=== PATIENT | female | born 1990 | race Caucasian/White ===

== ENCOUNTER 2020-01-19 18:31 | Emergency (ER) | payer OTHER ==
[~2020-01-19 18:31] MED LIST: Iopamidol-370 76% 500 ML 1 ML ONE
[2020-01-19] MEDS ORDERED: Fentanyl 100 MCG/2 ML VIAL ONE (18:44)
[2020-01-19 18:54] LABS: #Eosinphils 0.2 thou/uL (0.0-0.7); #Monocytes 0.5 thou/uL (0.11-0.59); #Neutrophils 5.4 thou/uL (1.40-6.50); %Basophils 0.6 % (0.0-1.0); %Eosinophils 2.8 % (0.0-10.0); %Lymphocytes 24.1 % (21.0-51.0); %Monocytes 6.1 % (0.0-10.0); %Neutrophils 66.5 % (42.0-75.0); Hemoglobin 15.1 g/dL (12.0-16.0); Mean Corpuscular Hemoglobin 34.3 pg (27.0-31.0); Mean Corpuscular Volume 97.9 fL (78.0-98.0); Mean Platelet Volume 10.2 fL (7.4-10.4); Platelet Count 168 thou/uL (130-400); RBC Distribution Width 11.6 % (11.5-14.5); Red Blood Cell (RBC) Count 4.39 mill/uL (4.20-5.40); White Blood Cell (WBC) Count 8.2 thou/uL (4.8-10.8)
[2020-01-19 19:03] LABS: BHCG - Serum Negative (NEGATIVE); Pregs Control Background? CLEAR/WHITE (CLR/WHITE); Pregs Control Bar Appear? YES (CONTROL BAR)
[2020-01-19 19:07] LABS: ALT (SGPT) 12 U/L (8-55); AST (SGOT) 17 U/L (5-34); Alkaline Phosphatase 64 U/L (40-110); Anion Gap 14 mmol/L (10-20); BUN (Urea Nitrogen) 10 mg/dL (7.0-18.7); Bilirubin, Total 0.8 mg/dL (0.2-1.2); Calc. Creatinine Clearance 0 mL/min (70-130); Calcium 8.7 mg/dL (7.8-10.44); Carbon Dioxide 18 mmol/L (22-29); Chloride 107 mmol/L (98-107); Estimated GFR-MDRD 67; Globulin 2.6 g/dL (2.4-3.5); Glucose 104 mg/dL (70-105); Lipase 12 U/L (8-78); Potassium 3.8 mmol/L (3.5-5.1); Protein, Total 6.6 g/dL (6.0-8.3); Sodium 135 mmol/L (136-145)
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
[2020-01-19] MEDS ORDERED: Lidocaine 1% w/Epinephrine 1:100K 20 ML VIAL ONE (20:24)
[2020-01-19] MEDS ORDERED: Ondansetron PF 4 MG/2 ML Vial ONE ×2 (20:27→21:41)
--- NOTE | 2020-01-19 21:08 | RAD ---
XR Wrist 3 Lt View STANDARD History: Pain Comparison: None. Findings: Subtle linear lucency along the medial margin of the hamate at the carpometacarpal joint. R emainder the wrist is intact. Impression: Subtle vertically oriented linear lucency of medial margin of the hamate at the carpometa carpal joint. Recommend correlation with focal tenderness in this area.
[2020-01-19] MEDS ORDERED: Morphine 4 MG/ML VIAL ONE (21:41)
[2020-01-19 22:02] LABS: Lactic Acid 1.8 mmol/L (0.5-2.2)
[2020-01-19] MEDS ORDERED: Bacitracin 1 PK ONE (22:29)
== END 2020-01-19 22:58 | disposition home or self-care (01) ==
LOC: ERS 18:31
DX: S09.90XA Unspecified injury of head, initial encounter (principal); S62.142A Displaced fracture of body of hamate [unciform] bone, left wrist, initial encounter for closed fracture; S81.012A Laceration without foreign body, left knee, initial encounter; S51.012A Laceration without foreign body of left elbow, initial encounter; V29.9XXA Motorcycle rider (driver) (passenger) injured in unspecified traffic accident, initial encounter
CPT/HCPCS: 12002; 36415; 70450; 71260; 72125; 72170; 74177; 80053; 83605; 83690; 84703; 85025; 86850; 86900; 86901; 90471; 93005; 96374; 96375; 96376; G0390; J2270; J2405; J3010; Q9967

== ENCOUNTER 2020-04-05 18:46 | Inpatient (IN) | payer OTHER ==
[~2020-04-05 18:46] MED LIST changes: +Calcium Chloride 1 GM/10 ML Abboject SYRINGE ONE; +PROPOFOL 200 MG/20 ML VIAL ONE; +Rocuronium Bromide 10 MG/ML (10ML VIAL) ONE
[2020-04-05] MEDS ORDERED: Fentanyl 100 MCG/2 ML VIAL ONE ×3 (18:50→21:41)
[2020-04-05] MEDS ORDERED: Boostrix 0.5 ML (Tdap) VIAL ONE (18:50)
[2020-04-05] MEDS ORDERED: Rocuronium Bromide 10 MG/ML (10ML VIAL) ONE (18:53)
[2020-04-05] MEDS ORDERED: Ketamine 50 MG/ML (10ML VIAL) ONE (18:53)
[2020-04-05 19:05] LABS: #Basophils 0.1 thou/uL (0.0-0.2); #Eosinphils 0.1 thou/uL (0.0-0.7); #Lymphocytes 2.9 thou/uL (1.20-3.40); #Monocytes 0.4 thou/uL (0.11-0.59); #Neutrophils 11.4 thou/uL (1.40-6.50); %Basophils 0.5 % (0.0-1.0); %Eosinophils 0.7 % (0.0-10.0); %Lymphocytes 19.3 % (21.0-51.0); %Monocytes 2.5 % (0.0-10.0); Hemoglobin 14.4 g/dL (12.0-16.0); Mean Corpuscular HGB CONC 33.3 g/dL (32.0-36.0); Mean Corpuscular Hemoglobin 32.5 pg (27.0-31.0); Mean Corpuscular Volume 97.5 fL (78.0-98.0); Mean Platelet Volume 8.9 fL (7.4-10.4); Platelet Count 207 thou/uL (130-400); RBC Distribution Width 11.5 % (11.5-14.5); Red Blood Cell (RBC) Count 4.42 mill/uL (4.20-5.40); White Blood Cell (WBC) Count 14.8 thou/uL (4.8-10.8)
[2020-04-05] MEDS ORDERED: Gentamicin 80 MG/2 ML VIAL ONE (19:09)
[2020-04-05 19:11] LABS: PTT 26.3 sec (22.9-36.1)
[2020-04-05 19:13] LABS: INR-International Normal Ratio 1.1; Prothrombin Time 14.8 sec (12.0-14.7)
[2020-04-05 19:16] LABS: BHCG - Serum Negative (NEGATIVE); Pregs Control Background? CLEAR/WHITE (CLR/WHITE); Pregs Control Bar Appear? YES (CONTROL BAR)
[2020-04-05] MEDS ORDERED: fentaNYL Citrate/PF 2,000 MCG in Sodium Chloride 0.9% 60 ML IV SCH (19:30)
[2020-04-05 19:32] LABS: ALT (SGPT) 472 U/L (8-55); AST (SGOT) 618 U/L (5-34); Albumin 4.1 g/dL (3.5-5.0); Alkaline Phosphatase 60 U/L (40-110); Anion Gap 17 mmol/L (10-20); BUN (Urea Nitrogen) 10 mg/dL (7.0-18.7); Bilirubin, Total 0.6 mg/dL (0.2-1.2); Calc. Creatinine Clearance 0 mL/min (70-130); Calcium 8.5 mg/dL (7.8-10.44); Carbon Dioxide 19 mmol/L (22-29); Chloride 108 mmol/L (98-107); Globulin 2.8 g/dL (2.4-3.5); Glucose 126 mg/dL (70-105); Potassium 3.9 mmol/L (3.5-5.1); Protein, Total 6.9 g/dL (6.0-8.3); Sodium 140 mmol/L (136-145)
[2020-04-05 20:00] LABS: Acetaminophen Less than 6.0 mcg/mL (10.0-30.0); Alcohol 59 mg/dL (Less than 10); Salicylate Less than 8.0 mg/dL (15.0-30.0)
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
[2020-04-05] MEDS ORDERED: Sodium Chloride 0.9% 50 ML ONE (20:10)
[2020-04-05] MEDS ORDERED: PHENYLEPHRINE-NS 100 MCG/ML 10 ML SYRINGE ONE (20:24)
[2020-04-05] MEDS ORDERED: Phenylephrine 10 MG/ML VIAL ONE (20:24)
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
[2020-04-05 20:30] LABS: Bilirubin Negative (Negative); Blood, Urine 3+ (Negative); Clarity Clear (Clear); Glucose, Urine (Dipstick) Normal (Negative); Ketone, Urine Negative (Negative); Leukocyte Negative Leu/uL (Negative); Nitrite Negative (Negative); Protein, Urine (Dipstick) 30 mg/dL (Neg-Trace); Specific Gravity, Urine 1.006 (1.002-1.036); Squamous Epithelial None Seen HPF (0-3); Urobilinogen Normal mg/dL (Less than 2); pH, Urine 6.5 (5.0-9.0)
[2020-04-05 20:31] LABS: Bacteria/HPF 1+ HPF (None Seen)
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
[2020-04-05] MEDS ORDERED: Sodium Bicarb 50 MEQ/50 ML Abboject 8.4% SYRINGE ONE (20:59)
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
[2020-04-05 21:04] LABS: Amphetamine Detected (NotDetected); Barbiturates Screen Not Detected (NotDetected); Benzodiazepine Screen Not Detected (NotDetected); Cocaine Metabolite Screen Not Detected (NotDetected); Medtox Control Line Valid? VALID (VALID); Medtox Reader # READER 1; Methadone Not Detected (NotDetected); Methamphetamine Detected (NotDetected); Opiate Screen Not Detected (NotDetected); Oxycodone Screen Not Detected (NotDetected); Phencyclidine (PCP) Not Detected (NotDetected); THC/Cannabinoid Screen Detected (NotDetected); Tricyclic Screen Not Detected (NotDetected)
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
[2020-04-05] MEDS ORDERED: Norepinephrine 4 MG/4 ML VIAL ONE (21:13)
[2020-04-05] MEDS ORDERED: Midazolam HCl 2 mg/2 ml Vial ONE (21:41)
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
[2020-04-05] MEDS ORDERED: Communication Order-Pharmacy FS PRN (22:45)
[2020-04-05] MEDS ORDERED: Propofol BOLUS 1,000 MG/100 ML VIAL IV PRN (23:00)
[2020-04-05] MEDS ORDERED: Dextrose 5% in Water 1,000 ML IV PRN (23:00)
[2020-04-05] MEDS ORDERED: Ondansetron PF 4 MG/2 ML Vial IVP PRN (23:00)
[2020-04-05] MEDS ORDERED: Dextrose 50% Abboject 50 ML SYRINGE SLOW IVP PRN (23:00)
[2020-04-05] MEDS ORDERED: cefTRIAXone\\ROCEPHIN 2 GM in Sodium Chloride 0.9% 100 ML IVPB SCH (23:00)
[2020-04-05] MEDS ORDERED: Ondansetron ODT 4 MG TAB PO PRN (23:00)
[2020-04-05] MEDS ORDERED: DISCONTINUE PREVIOUS NARCOTIC PAIN MEDICATIONS AND BENZODIAZEPINES FS SCH (23:00)
[2020-04-05] MEDS ORDERED: Ventilator Sedation Protocol 1 EACH FS SCH (23:00)
[2020-04-05] MEDS ORDERED: Fentanyl BOLUS 250 ML IVPB PRN ×2 (23:00→23:15)
[2020-04-05] MEDS ORDERED: Lorazepam 2 MG/ML VIAL SLOW IVP PRN (23:00)
[2020-04-05] MEDS ORDERED: Morphine 2 MG/ML VIAL SLOW IVP PRN (23:00)
[2020-04-05] MEDS ORDERED: hydrALAZINE 20 MG/ML VIAL SLOW IVP PRN (23:00)
[2020-04-05 23:09] LABS: Actual Bicarbonate (HCO3a) 20.4 mEq/L (22-28); Base Excess (BEa) -4.5 mEq/L (-2.0 to +3.0); CO2 Tension 36.2 mmHg (35.0-45.0); Calcium, Ionized (arterial) 1.08 mmol/L (1.12-1.30); Carboxyhemoglobin (COHb) 0.6 gm% (0.0-3.0); Hemoglobin (Hb) 7.8 g/dL (12.0-16.0); O2 Tension (PaO2), arterial 315.7 mmHg (80.0-100.0); Potassium - ABG Lab 4.25 mmol/L (3.70-5.30); pH, Arterial 7.37 (7.35-7.45)
[2020-04-05 23:13] LABS: Analyzer IN Cardio ER; Puncture Site Arterial Line
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
[2020-04-05] MEDS: fentaNYL Citrate/PF 2,000 MCG in Sodium Chloride 0.9% 60 ML IV SCH (23:27)
[2020-04-05] MEDS: Sodium Chloride 0.9% 1,000 ML IV SCH (23:28)
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
[2020-04-06] MEDS ORDERED: Midazolam HCl 2 mg/2 ml Vial ONE (00:13)
[2020-04-06 00:17] LABS: SARS-CoV-2 NAA Rapid Test Not Detected (NotDetected)
[2020-04-06] MEDS ORDERED: Midazolam HCl 2 mg/2 ml Vial SLOW IVP PRN (00:28)
[2020-04-06] MEDS ORDERED: Hydrocortisone Sod Succ/PF 100 mg/2 ml Vial IVP SCH (00:30)
[2020-04-06 00:53] LABS: INR-International Normal Ratio 1.3; PTT 32.2 sec (22.9-36.1); Prothrombin Time 16.7 sec (12.0-14.7)
[2020-04-06 00:59] LABS: Hemoglobin 8.6 g/dL (12.0-16.0)
[2020-04-06 01:07] LABS: Anion Gap 13 mmol/L (10-20); BUN (Urea Nitrogen) 10 mg/dL (7.0-18.7); Calc. Creatinine Clearance 0 mL/min (70-130); Calcium 7.3 mg/dL (7.8-10.44); Carbon Dioxide 22 mmol/L (22-29); Chloride 113 mmol/L (98-107); Glucose 116 mg/dL (70-105); Magnesium 1.7 mg/dL (1.6-2.6); Phosphorus 4.3 mg/dL (2.3-4.7); Sodium 144 mmol/L (136-145)
[2020-04-06] MEDS ORDERED: Calcium Chloride 13.6 MEQ in Sodium Chloride 0.9% 100 ML IVPB SCH ×2 (01:15→17:30)
[2020-04-06] MEDS ORDERED: Magnesium 2 GM/50 ML 2 GM in Premix Bag 1 BAG IVPB SCH (01:15)
[2020-04-06] MEDS: Phenylephrine 40 MG in Sodium Chloride 0.9% 250 ML 250 ML IVPB SCH (01:33)
[2020-04-06] MEDS: Propofol 1,000 MG/100 ML VIAL IV PRN ×4 (01:34→21:42)
[2020-04-06] MEDS ORDERED: diphenhydrAMINE 50 MG/ML VIAL IVP SCH (02:00)
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
[2020-04-06] MEDS: Clindamycin/D5W 600 MG in Premix Bag 1 BAG IVPB SCH ×4 (03:49→21:43)
[2020-04-06 05:05] LABS: INR-International Normal Ratio 1.3; PTT 31.2 sec (22.9-36.1); Prothrombin Time 16.8 sec (12.0-14.7)
[2020-04-06 05:31] LABS: Anion Gap 13 mmol/L (10-20); BUN (Urea Nitrogen) 12 mg/dL (7.0-18.7); Calc. Creatinine Clearance 98 mL/min (70-130); Calcium 8.3 mg/dL (7.8-10.44); Carbon Dioxide 21 mmol/L (22-29); Chloride 113 mmol/L (98-107); Glucose 122 mg/dL (70-105); Potassium 4.2 mmol/L (3.5-5.1); Sodium 143 mmol/L (136-145)
[2020-04-06 05:32] LABS: #Lymphocytes 0.5 thou/uL (1.20-3.40); #Monocytes 0.4 thou/uL (0.11-0.59); #Neutrophils 5.5 thou/uL (1.40-6.50); %Lymphocytes 7.3 % (21.0-51.0); %Neutrophils 86.6 % (42.0-75.0); Mean Corpuscular HGB CONC 34.4 g/dL (32.0-36.0); Mean Corpuscular Hemoglobin 31.6 pg (27.0-31.0); Mean Corpuscular Volume 91.9 fL (78.0-98.0); Platelet Count 80 thou/uL (130-400); Red Blood Cell (RBC) Count 2.21 mill/uL (4.20-5.40); White Blood Cell (WBC) Count 6.3 thou/uL (4.8-10.8)
[2020-04-06 07:18] LABS: Actual Bicarbonate (HCO3a) 22.6 mEq/L (22-28); Base Excess (BEa) -2.1 mEq/L (-2.0 to +3.0); CO2 Tension 38.1 mmHg (35.0-45.0); Calcium, Ionized (arterial) 1.11 mmol/L (1.12-1.30); Carboxyhemoglobin (COHb) 1.4 gm% (0.0-3.0); Hemoglobin (Hb) 6.4 g/dL (12.0-16.0); O2 Tension (PaO2), arterial 202.5 mmHg (80.0-100.0); Potassium - ABG Lab 4.11 mmol/L (3.70-5.30); pH, Arterial 7.39 (7.35-7.45)
[2020-04-06 07:20] LABS: Puncture Site Arterial Line
[2020-04-06 07:21] LABS: ALV-art Gradient 35.075 mmHg (0-20)
[2020-04-06 07:55] LABS: Magnesium 2.1 mg/dL (1.6-2.6); Phosphorus 4.6 mg/dL (2.3-4.7)
[2020-04-06] MEDS: Sodium Chloride 0.9% 1,000 ML IV SCH ×2 (07:57→17:48)
--- NOTE | 2020-04-06 08:36 | RAD ---
PORTABLE CHEST: HISTORY: Chest tube evaluation. COMPARISON: 04/05/2020. FINDINGS: Left chest tube has been placed. No significant pneumothorax apparent. Lungs appear well aerated an d clear. ET tube, NG tube, and central lines appear adequately positioned. Bony thorax appears inta ct. IMPRESSION: No acute interval change. POS: AGW
[2020-04-06] MEDS: Famotidine/PF 20 mg/2ml Vial SLOW IVP SCH ×2 (09:17→21:43)
[2020-04-06] MEDS: Hydrocortisone Sod Succ/PF 100 mg/2 ml Vial IVP SCH ×2 (09:17→17:44)
[2020-04-06] MEDS ORDERED: Iopamidol 370 76% 50 ML VIAL FS ONE (09:28)
[2020-04-06] MEDS ORDERED: Calcium Gluconate 9.2 MEQ in Sodium Chloride 0.9% 100 ML IVPB SCH (11:00)
[2020-04-06] MEDS ORDERED: Fentanyl 100 MCG/2 ML VIAL ONE (14:31)
[2020-04-06] MEDS: fentaNYL Citrate/PF 2,000 MCG in Sodium Chloride 0.9% 60 ML IV SCH (15:16)
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
[2020-04-06] MEDS ORDERED: Albumin 5% 250 ML ONE ×2 (15:50→16:04)
[2020-04-06 16:08] LABS: Hemoglobin 8.8 g/dL (12.0-16.0)
[2020-04-06 16:26] LABS: #Monocytes 0.1 thou/uL (0.11-0.59); #Neutrophils 2.1 thou/uL (1.40-6.50); %Basophils 0.2 % (0.0-1.0); %Eosinophils 0.4 % (0.0-10.0); %Lymphocytes 30.5 % (21.0-51.0); %Monocytes 2.7 % (0.0-10.0); %Neutrophils 66.2 % (42.0-75.0); Hemoglobin 8.8 g/dL (12.0-16.0); Mean Corpuscular HGB CONC 34.8 g/dL (32.0-36.0); Mean Corpuscular Hemoglobin 32.2 pg (27.0-31.0); Mean Corpuscular Volume 92.6 fL (78.0-98.0); Mean Platelet Volume 9.6 fL (7.4-10.4); Platelet Count 59 thou/uL (130-400); RBC Distribution Width 13.2 % (11.5-14.5); Red Blood Cell (RBC) Count 2.72 mill/uL (4.20-5.40); White Blood Cell (WBC) Count 3.1 thou/uL (4.8-10.8)
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
[2020-04-06 17:01] LABS: Hemoglobin 7.7 g/dL (12.0-16.0)
[2020-04-06 17:08] LABS: Actual Bicarbonate (HCO3a) 20.4 mEq/L (22-28); Base Excess (BEa) -4.4 mEq/L (-2.0 to +3.0); CO2 Tension 36.3 mmHg (35.0-45.0); Calcium, Ionized (arterial) 1.13 mmol/L (1.12-1.30); Carboxyhemoglobin (COHb) 0.6 gm% (0.0-3.0); Hemoglobin (Hb) 8.2 g/dL (12.0-16.0); O2 Tension (PaO2), arterial 209.6 mmHg (80.0-100.0); Potassium - ABG Lab 3.91 mmol/L (3.70-5.30); pH, Arterial 7.37 (7.35-7.45)
[2020-04-06 17:09] LABS: ALV-art Gradient 30.225 mmHg (0-20); Puncture Site Arterial Line
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
[2020-04-06 23:33] LABS: Hemoglobin 7.2 g/dL (12.0-16.0)
[2020-04-07] MEDS: Sodium Chloride 0.9% 1,000 ML IV SCH ×2 (00:24→08:16)
[2020-04-07] MEDS: Hydrocortisone Sod Succ/PF 100 mg/2 ml Vial IVP SCH ×3 (00:24→17:08)
[2020-04-07] MEDS: Phenylephrine 40 MG in Sodium Chloride 0.9% 250 ML 250 ML IVPB SCH (00:35)
[2020-04-07] MEDS: Clindamycin/D5W 600 MG in Premix Bag 1 BAG IVPB SCH ×4 (02:27→21:35)
[2020-04-07 05:26] LABS: #Lymphocytes 0.7 thou/uL (1.20-3.40); #Monocytes 0.4 thou/uL (0.11-0.59); %Basophils 0.2 % (0.0-1.0); %Eosinophils 0.7 % (0.0-10.0); %Lymphocytes 16.4 % (21.0-51.0); %Neutrophils 72.6 % (42.0-75.0); Hemoglobin 9.9 g/dL (12.0-16.0); Mean Corpuscular HGB CONC 34.2 g/dL (32.0-36.0); Mean Corpuscular Hemoglobin 30.7 pg (27.0-31.0); Mean Corpuscular Volume 89.7 fL (78.0-98.0); Mean Platelet Volume 6.4 fL (7.4-10.4); Platelet Count 53 thou/uL (130-400); RBC Distribution Width 15.1 % (11.5-14.5); Red Blood Cell (RBC) Count 3.23 mill/uL (4.20-5.40); White Blood Cell (WBC) Count 4.2 thou/uL (4.8-10.8)
[2020-04-07 05:50] LABS: Anion Gap 9 mmol/L (10-20); BUN (Urea Nitrogen) 10 mg/dL (7.0-18.7); Calc. Creatinine Clearance 114 mL/min (70-130); Calcium 7.7 mg/dL (7.8-10.44); Carbon Dioxide 22 mmol/L (22-29); Chloride 112 mmol/L (98-107); Glucose 123 mg/dL (70-105); Magnesium 1.7 mg/dL (1.6-2.6); Phosphorus 3.4 mg/dL (2.3-4.7); Potassium 4.4 mmol/L (3.5-5.1); Sodium 139 mmol/L (136-145)
--- NOTE | 2020-04-07 08:06 | RAD ---
XR Chest 1 View Portable History: Intubated patient Comparison: Radiograph prior day Findings: Left thoracostomy tube in similar location with tip projecting over the posterior left thir d rib head. No significant left pneumothorax is appreciated. Left subclavian approach central venous catheter tip projects over the mid SVC. Enteric tube tip belo w diaphragm although out of field of view. Endotracheal tube tip at the clavicular level. Impression: Similar examination of the chest without significant pneumothorax appreciated.
[2020-04-07] MEDS: Famotidine/PF 20 mg/2ml Vial SLOW IVP SCH ×2 (08:17→21:35)
[2020-04-07] MEDS: fentaNYL Citrate/PF 2,000 MCG in Sodium Chloride 0.9% 60 ML IV SCH (09:36)
[2020-04-07] MEDS ORDERED: Dexamethasone 20 MG/5 ML VIAL ONE (10:37)
[2020-04-07] MEDS ORDERED: Rocuronium Bromide 10 MG/ML (10ML VIAL) ONE (10:37)
[2020-04-07] MEDS ORDERED: Metoclopramide HCl 10 MG/2 ML VIAL ONE (10:37)
[2020-04-07] MEDS ORDERED: Ondansetron PF 4 MG/2 ML Vial ONE (10:37)
[2020-04-07] MEDS ORDERED: PROPOFOL 200 MG/20 ML VIAL ONE (10:37)
[2020-04-07] MEDS ORDERED: Sodium Bicarbonate 150 MEQ in Dextrose 5% in Water 1,000 ML IV SCH ×2 (10:45→22:45)
[2020-04-07 11:16] LABS: Hemoglobin 9.3 g/dL (12.0-16.0)
[2020-04-07 11:38] LABS: Actual Bicarbonate (HCO3a) 17.2 mEq/L (22-28); Analyzer IN Cardio OR; Base Excess (BEa) -7.7 mEq/L (-2.0 to +3.0); CO2 Tension 31.9 mmHg (35.0-45.0); Calcium, Ionized (arterial) 0.67 mmol/L (1.12-1.30); Carboxyhemoglobin (COHb) 1.6 gm% (0.0-3.0); Hemoglobin (Hb) 6.4 g/dL (12.0-16.0); O2 Tension (PaO2), arterial 490.9 mmHg (80.0-100.0); Potassium - ABG Lab 4.19 mmol/L (3.70-5.30); pH, Arterial 7.35 (7.35-7.45)
[2020-04-07] MEDS ORDERED: Fentanyl 100 MCG/2 ML VIAL ONE (11:39)
[2020-04-07] MEDS ORDERED: Midazolam HCl 5 mg/5 ml Vial ONE (11:40)
[2020-04-07 11:47] LABS: Analyzer IN Cardio OR; Base Excess (BEa) -12.5 mEq/L (-2.0 to +3.0); Calcium, Ionized (arterial) 0.85 mmol/L (1.12-1.30); Carboxyhemoglobin (COHb) 1.5 gm% (0.0-3.0); Potassium - ABG Lab 2.96 mmol/L (3.70-5.30)
[2020-04-07 11:47] LABS: Analyzer IN Cardio OR; Base Excess (BEa) -5.7 mEq/L (-2.0 to +3.0); Calcium, Ionized (arterial) 1.13 mmol/L (1.12-1.30); Carboxyhemoglobin (COHb) 0.8 gm% (0.0-3.0); Hemoglobin (Hb) 7.4 g/dL (12.0-16.0); Potassium - ABG Lab 4.73 mmol/L (3.70-5.30); pH, Arterial 7.32 (7.35-7.45)
[2020-04-07 11:51] LABS: pH, Arterial 7.22 (7.35-7.45)
[2020-04-07 11:52] LABS: O2 Tension (PaO2), arterial 501.8 mmHg (80.0-100.0); Puncture Site Arterial Line
[2020-04-07 11:53] LABS: Puncture Site Arterial Line
[2020-04-07 11:54] LABS: Puncture Site Arterial Line
[2020-04-07] MEDS ORDERED: Phenylephrine 10 MG/ML VIAL ONE (12:52)
[2020-04-07] MEDS ORDERED: Neomycin-Polymyxin 1 ML AMP ONE (14:12)
[2020-04-07 16:56] LABS: Hemoglobin 9.6 g/dL (12.0-16.0)
--- NOTE | 2020-04-07 17:46 | RAD ---
LEFT FEMUR RADIOGRAPH TWO VIEWS: 04/07/20 PROVIDED CLINICAL HISTORY: External fixation. FINDINGS: Comparison 04/05/20. Interval placement of external fixation device involving the proximal femoral diaphysis. Comminuted f ractures of the distal femur and proximal tibia are redemonstrated. There are less bony fragments in the distal femoral metadiaphyseal region. IMPRESSION: As above. POS: SAMIRA
--- NOTE | 2020-04-07 17:48 | RAD ---
TWO VIEWS LEFT FORELE04/07/20 PROVIDED CLINICAL HISTORY: Status post debridement. FINDINGS: Comparison 04/05/20 Comminuted, displaced fractures of the femur, tibia and fibula are redemonstrated. There is less dis placement and angulation at the distal tibial and fibular fractures. IMPRESSION: As above. POS: SAMIRA
--- NOTE | 2020-04-07 18:44 | OP ---
DATE OF PROCEDURE: 04/07/2020 PROCEDURES PERFORMED: 1. Open reduction and internal fixation of left olecranon fracture. 2. Irrigation and debridement of left open femur fracture, and irrigation and debridement of left open tibia fracture. PREOPERATIVE DIAGNOSES: Displaced left olecranon fracture and open left femur fracture and open left tibia fracture. POSTOPERATIVE DIAGNOSES: Displaced left olecranon fracture and open left femur fracture and open left tibia fracture. COMPLICATIONS: None. ESTIMATED BLOOD LOSS: 100 mL. VICE PRESIDENT & GENERAL MANAGER [employer] [place]: Katie Buchanan PA-C IMPLANTS: Synthes olecranon plate with multiple locking and nonlocking screws was utilized. DESCRIPTION OF PROCEDURE: Ms. Munguia was identified in the intensive care unit. Her extremities were marked. She was carried down to the operating room. She was given intravenous antibiotics. A multidisciplinary time-out was performed. We prepped and draped the left upper extremity. At this point, we performed a posterior approach to the elbow. We dissected down through the subcutaneous tissues to the olecranon. The bony fracture was exposed. We cleared hematoma. We found multiple fragments. These were reduced into their anatomic position and held with K-wire fixation. At this point, we took x-rays confirming this. We then applied a Synthes olecranon plate. Multiple screws were placed proximally and distally to the fracture. At this point, an x-ray was taken confirming plate positioning. We filled all remaining appropriate screw holes. We thoroughly irrigated the wounds with copious lavage. We then placed the patient in a well-padded splint. Her left hand was evaluated. She had two lacerations over the fingers. We also x-rayed her hand and she was found to have a fourth and fifth metacarpal fracture. These were in a good position. We irrigated and closed the lacerations to her fingers. We then placed a splint over her lateral hand. We then moved her leg. The patient's left leg was prepped and draped with Betadine solution. We then opened her multiple wounds. We removed the two previously placed lap sponges. We explored the underlying thigh wound. She had a large extensive laceration which went down to the bony level. There was extensive bone loss and comminution as well. For the most part, the leg looked good. There were some small areas of muscle that looked nonviable, which were debrided, but the majority of the muscle looked healthy and was receiving good blood flow. We thoroughly irrigated with 5 L of lavage. We then loosely closed the wound back again. No sponges or foreign material was left. Next, we moved to the lower leg. The patient's degloved skin on the lower leg was opened and we debrided underlying muscle. There was extensive damage to the anterior and lateral compartments. These muscles were debrided back to a healthy margin. Some fascial material was debrided as well. Again, we thoroughly irrigated with copious lavage. There was no purulence. There was no foreign body identified. Again, we brought up the skin and tacked this closed with sutures. We then opened the remaining more distal wounds and these were thoroughly irrigated with lavage. Next, we reattached the patient's external fixator system to stabilize the leg. We then applied a well-padded dressing with Xeroform gauze and dry gauze. A sterile dressing was applied. The patient was taken back to the CCU in stable, but critical condition. The television production assistant was involved in positioning the patient, prepping and drapping the limb, wound and retraction. The television production assistant also helped in obtaining a reduction of the fracture and application of the intrumentation. The television production assistant was involved in closing the wound. Job ID: [id number] MTDD
[2020-04-07] MEDS ORDERED: diphenhydrAMINE 50 MG/ML VIAL IVP PRN (19:21)
[2020-04-07] MEDS ORDERED: Promethazine HCl 25 MG/ML VIAL IM PRN (19:21)
[2020-04-07] MEDS ORDERED: Naloxone HCl 0.4 mg/ml Vial IV PRN (19:21)
[2020-04-07] MEDS ORDERED: diphenhydrAMINE 50 MG/ML VIAL IM PRN (19:21)
[2020-04-07] MEDS ORDERED: Communication Order-Pharmacy FS SCH (19:30)
--- NOTE | 2020-04-07 19:52 | RAD ---
INTRAOPERATIVE IMAGING OF THE LEFT ELBOW: 04/07/20 COMPARISON: 04/05/20. HISTORY: Fracture status post ORIF. FINDINGS: Prior study demonstrates a fracture dislocation of the left elbow. This study is composed of three in traoperative images which demonstrate interval reduction of the previously noted elbow dislocation. T here is dorsal screw and plate fixation of the proximal ulnar fracture. IMPRESSION: Intraoperative imaging as above. POS: AMINA
[2020-04-07] MEDS: HYDROmorphone 10 mg/100 ml CADD IVPB PRN (20:38)
[2020-04-07 22:52] LABS: Mean Corpuscular HGB CONC 33.1 g/dL (32.0-36.0); Mean Corpuscular Hemoglobin 29.6 pg (27.0-31.0); Mean Corpuscular Volume 89.5 fL (78.0-98.0); Mean Platelet Volume 10.6 fL (7.4-10.4); Platelet Count 58 thou/uL (130-400); Red Blood Cell (RBC) Count 3.03 mill/uL (4.20-5.40)
[2020-04-08] MEDS: Hydrocortisone Sod Succ/PF 100 mg/2 ml Vial IVP SCH ×3 (00:28→17:50)
[2020-04-08] MEDS: Insulin Regular 300 UNITS/3 ML VIAL SC PRN ×3 (00:28→12:22)
[2020-04-08] MEDS: Clindamycin/D5W 600 MG in Premix Bag 1 BAG IVPB SCH ×4 (03:49→20:09)
[2020-04-08 04:08] LABS: #Lymphocytes 0.7 thou/uL (1.20-3.40); #Monocytes 0.5 thou/uL (0.11-0.59); #Neutrophils 3.5 thou/uL (1.40-6.50); %Basophils 0.3 % (0.0-1.0); %Eosinophils 0.1 % (0.0-10.0); %Lymphocytes 14.5 % (21.0-51.0); %Monocytes 10.2 % (0.0-10.0); %Neutrophils 74.9 % (42.0-75.0); Hemoglobin 8.7 g/dL (12.0-16.0); Mean Corpuscular HGB CONC 32.8 g/dL (32.0-36.0); Mean Corpuscular Hemoglobin 29.5 pg (27.0-31.0); Mean Corpuscular Volume 89.9 fL (78.0-98.0); Mean Platelet Volume 10.6 fL (7.4-10.4); Platelet Count 60 thou/uL (130-400); Red Blood Cell (RBC) Count 2.94 mill/uL (4.20-5.40); White Blood Cell (WBC) Count 4.6 thou/uL (4.8-10.8)
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
[2020-04-08 04:42] LABS: Anion Gap 11 mmol/L (10-20); BUN (Urea Nitrogen) 7 mg/dL (7.0-18.7); Calc. Creatinine Clearance 130 mL/min (70-130); Calcium 7.7 mg/dL (7.8-10.44); Carbon Dioxide 31 mmol/L (22-29); Chloride 103 mmol/L (98-107); Glucose 153 mg/dL (70-105); Magnesium 1.9 mg/dL (1.6-2.6); Phosphorus 2.5 mg/dL (2.3-4.7); Potassium 3.7 mmol/L (3.5-5.1); Sodium 141 mmol/L (136-145)
[2020-04-08] MEDS: Famotidine/PF 20 mg/2ml Vial SLOW IVP SCH ×2 (08:12→20:08)
[2020-04-08 08:34] LABS: CK (CPK) 7415 U/L (29-168)
[2020-04-08] MEDS: Polyethylene Glycol 3350 17 GM Packet PO SCH (09:30)
[2020-04-08] MEDS: Dextrose 5 %-0.45 % NaCl 1,000 ML IV SCH ×2 (09:30→17:50)
[2020-04-08] MEDS: Ascorbic Acid 500 mg Chewable Tablet PO SCH ×2 (09:30→20:08)
--- NOTE | 2020-04-08 09:37 | RAD ---
AP CHEST: HISTORY: Chest tube followup. COMPARISON: 04/07/2020. FINDINGS: ET tube and NG tube have been removed. A left chest tube remains. Central line is unchanged. No evidence of significant pneumothorax. No infiltrate or vascular congestion. Heart and mediastinu m unremarkable. IMPRESSION: No acute interval change. POS: AGW
[2020-04-08] MEDS: Ferrous Sulfate 325 MG TAB PO SCH (17:50)
[2020-04-08] MEDS: Senokot S 8.6-50 MG TAB PO SCH (20:08)
[2020-04-09] MEDS: Hydrocortisone Sod Succ/PF 100 mg/2 ml Vial IVP SCH ×3 (01:32→17:01)
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
[2020-04-09] MEDS: Clindamycin/D5W 600 MG in Premix Bag 1 BAG IVPB SCH ×4 (02:56→20:55)
[2020-04-09] MEDS: Dextrose 5 %-0.45 % NaCl 1,000 ML IV SCH (03:04)
[2020-04-09 06:39] LABS: Hemoglobin 8.1 g/dL (12.0-16.0); Mean Corpuscular HGB CONC 32.9 g/dL (32.0-36.0); Mean Corpuscular Hemoglobin 30.4 pg (27.0-31.0); Mean Corpuscular Volume 92.3 fL (78.0-98.0); Mean Platelet Volume 10.3 fL (7.4-10.4); Platelet Count 86 thou/uL (130-400); RBC Distribution Width 14.7 % (11.5-14.5); Red Blood Cell (RBC) Count 2.66 mill/uL (4.20-5.40)
[2020-04-09 06:58] LABS: Anion Gap 10 mmol/L (10-20); BUN (Urea Nitrogen) 6 mg/dL (7.0-18.7); Calc. Creatinine Clearance 143 mL/min (70-130); Calcium 7.8 mg/dL (7.8-10.44); Carbon Dioxide 31 mmol/L (22-29); Chloride 104 mmol/L (98-107); Glucose 128 mg/dL (70-105); Magnesium 1.8 mg/dL (1.6-2.6); Phosphorus 2.6 mg/dL (2.3-4.7); Potassium 3.4 mmol/L (3.5-5.1); Sodium 142 mmol/L (136-145)
[2020-04-09 07:11] LABS: CK (CPK) 5122 U/L (29-168)
--- NOTE | 2020-04-09 07:57 | RAD ---
Chest one view HISTORY: Pneumothorax. Chest tube. Follow-up. COMPARISON: 04/08/2020. FINDINGS: Cardiac silhouette and pulmonary vasculature are unremarkable. Mediastinum remains midline. Left thoracostomy tube and left subclavian central venous catheter unchanged in position. Minimal pleural space gas at the lateral aspect of the left apex is smaller than on the prior study. No lobar consolidation. Irregular shaped small hyperdensity projecting over the medial aspect of the right apex is favored to represent extrinsic artifact. IMPRESSION : Tiny residual left apical pneumothorax. No new abnormalities.
[2020-04-09] MEDS: Ferrous Sulfate 325 MG TAB PO SCH ×2 (08:13→17:02)
[2020-04-09] MEDS: Senokot S 8.6-50 MG TAB PO SCH ×2 (08:14→20:55)
[2020-04-09] MEDS: Ascorbic Acid 500 mg Chewable Tablet PO SCH ×2 (08:14→20:55)
[2020-04-09] MEDS: Famotidine/PF 20 mg/2ml Vial SLOW IVP SCH ×2 (08:14→20:55)
[2020-04-09] MEDS: Polyethylene Glycol 3350 17 GM Packet PO SCH (08:17)
[2020-04-09] MEDS ORDERED: Magnesium Sulfate 2 GM in Sodium Chloride 0.9% 100 ML IVPB SCH (09:00)
[2020-04-09] MEDS ORDERED: Potassium Phosphate 30 MMOL, Magnesium Sulfate 2 GM in Sodium Chloride 0.9% 250 ML IVPB SCH (09:30)
[2020-04-09] MEDS: D5 1/2 NS w/20 mEq KCL 1,000 ML IV SCH ×3 (09:38→21:58)
[2020-04-09] MEDS: HYDROmorphone 10 mg/100 ml CADD IVPB PRN (12:32)
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
[2020-04-10] MEDS: Hydrocortisone Sod Succ/PF 100 mg/2 ml Vial IVP SCH ×3 (01:00→16:16)
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
[2020-04-10] MEDS: Clindamycin/D5W 600 MG in Premix Bag 1 BAG IVPB SCH ×4 (03:03→21:25)
[2020-04-10 06:00] LABS: Hemoglobin 8.3 g/dL (12.0-16.0); Mean Corpuscular HGB CONC 32.6 g/dL (32.0-36.0); Mean Corpuscular Hemoglobin 30.5 pg (27.0-31.0); Mean Corpuscular Volume 93.5 fL (78.0-98.0); Platelet Count 111 thou/uL (130-400); RBC Distribution Width 14.8 % (11.5-14.5); Red Blood Cell (RBC) Count 2.72 mill/uL (4.20-5.40); White Blood Cell (WBC) Count 6.4 thou/uL (4.8-10.8)
[2020-04-10 06:21] LABS: Anion Gap 10 mmol/L (10-20); BUN (Urea Nitrogen) 6 mg/dL (7.0-18.7); Calc. Creatinine Clearance 148 mL/min (70-130); Calcium 7.8 mg/dL (7.8-10.44); Carbon Dioxide 30 mmol/L (22-29); Chloride 105 mmol/L (98-107); Glucose 125 mg/dL (70-105); Magnesium 2.1 mg/dL (1.6-2.6); Phosphorus 3.4 mg/dL (2.3-4.7); Potassium 4.1 mmol/L (3.5-5.1); Sodium 141 mmol/L (136-145)
[2020-04-10 06:29] LABS: CK (CPK) 4441 U/L (29-168)
[2020-04-10] MEDS: Famotidine/PF 20 mg/2ml Vial SLOW IVP SCH ×2 (08:22→21:26)
[2020-04-10] MEDS: Ferrous Sulfate 325 MG TAB PO SCH ×2 (08:22→16:16)
[2020-04-10] MEDS: Senokot S 8.6-50 MG TAB PO SCH ×2 (08:22→21:25)
[2020-04-10] MEDS: Ascorbic Acid 500 mg Chewable Tablet PO SCH ×2 (08:22→21:26)
[2020-04-10] MEDS: Polyethylene Glycol 3350 17 GM Packet PO SCH (08:24)
[2020-04-10] MEDS: D5 1/2 NS w/20 mEq KCL 1,000 ML IV SCH ×3 (08:26→21:24)
--- NOTE | 2020-04-10 09:32 | RAD ---
EXAM: Chest one view: HISTORY: Left chest tube removal. COMPARISON: 04/09/2020 FINDINGS: Previous noted left chest tube has been removed. A small barely apical pneumothorax has reformed. Heart size: Within normal limits. Lungs: Clear of acute process. No evidence for other new process. Left central line in place. IMPRESSION: Small left-sided pneumothorax has reformed since removal of the left chest tube.
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
[2020-04-10] MEDS: HYDROmorphone 10 mg/100 ml CADD IVPB PRN (16:54)
[2020-04-11] MEDS: Hydrocortisone Sod Succ/PF 100 mg/2 ml Vial IVP SCH ×3 (01:31→16:11)
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
[2020-04-11] MEDS: Clindamycin/D5W 600 MG in Premix Bag 1 BAG IVPB SCH ×4 (03:41→20:34)
[2020-04-11 05:58] LABS: Hemoglobin 8.7 g/dL (12.0-16.0); Mean Corpuscular HGB CONC 31.3 g/dL (32.0-36.0); Mean Corpuscular Hemoglobin 29.3 pg (27.0-31.0); Mean Corpuscular Volume 93.8 fL (78.0-98.0); Mean Platelet Volume 8.6 fL (7.4-10.4); Platelet Count 157 thou/uL (130-400); Red Blood Cell (RBC) Count 2.98 mill/uL (4.20-5.40); White Blood Cell (WBC) Count 8.9 thou/uL (4.8-10.8)
[2020-04-11 06:23] LABS: Anion Gap 10 mmol/L (10-20); BUN (Urea Nitrogen) 6 mg/dL (7.0-18.7); CK (CPK) 3438 U/L (29-168); Calc. Creatinine Clearance 153 mL/min (70-130); Calcium 7.9 mg/dL (7.8-10.44); Carbon Dioxide 29 mmol/L (22-29); Chloride 104 mmol/L (98-107); Glucose 118 mg/dL (70-105); Magnesium 1.7 mg/dL (1.6-2.6); Phosphorus 3.4 mg/dL (2.3-4.7); Sodium 139 mmol/L (136-145)
[2020-04-11] MEDS: Polyethylene Glycol 3350 17 GM Packet PO SCH (08:22)
[2020-04-11] MEDS: Ferrous Sulfate 325 MG TAB PO SCH ×2 (08:22→16:12)
[2020-04-11] MEDS: Senokot S 8.6-50 MG TAB PO SCH ×2 (08:22→20:36)
[2020-04-11] MEDS: Famotidine/PF 20 mg/2ml Vial SLOW IVP SCH ×2 (08:22→20:37)
[2020-04-11] MEDS: Ascorbic Acid 500 mg Chewable Tablet PO SCH ×2 (08:22→20:37)
--- NOTE | 2020-04-11 08:54 | RAD ---
Chest one view HISTORY: Pneumothorax. COMPARISON: 04/10/2020. FINDINGS: Cardiac silhouette is magnified by projection. Pulmonary vasculature are unremarkable. Mediastinum is midline. Left subclavian central venous catheter remains in place. Small amount of inf erior lateral chest wall gas is stable. Left apical visceral pleura now projects over the posterior aspect of the left third rib, unchanged f rom the prior exam. No lobar consolidation. IMPRESSION : Small left apical pneumothorax, stable.
[2020-04-11] MEDS: D5 1/2 NS w/20 mEq KCL 1,000 ML IV SCH (11:01)
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
[2020-04-12] MEDS: Clindamycin/D5W 600 MG in Premix Bag 1 BAG IVPB SCH ×4 (03:08→21:12)
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
[2020-04-12 06:11] LABS: #Eosinphils 0.3 thou/uL (0.0-0.7); #Lymphocytes 2.9 thou/uL (1.20-3.40); #Monocytes 1.2 thou/uL (0.11-0.59); %Basophils 0.4 % (0.0-1.0); %Eosinophils 3.4 % (0.0-10.0); %Lymphocytes 30.7 % (21.0-51.0); %Monocytes 12.2 % (0.0-10.0); %Neutrophils 53.2 % (42.0-75.0); Hemoglobin 9.2 g/dL (12.0-16.0); Mean Corpuscular Hemoglobin 30.2 pg (27.0-31.0); Mean Corpuscular Volume 94.4 fL (78.0-98.0); Mean Platelet Volume 8.3 fL (7.4-10.4); Platelet Count 202 thou/uL (130-400); RBC Distribution Width 15.1 % (11.5-14.5); Red Blood Cell (RBC) Count 3.04 mill/uL (4.20-5.40); White Blood Cell (WBC) Count 9.4 thou/uL (4.8-10.8)
[2020-04-12] MEDS: HYDROmorphone 10 mg/100 ml CADD IVPB PRN (06:19)
[2020-04-12 06:31] LABS: Anion Gap 10 mmol/L (10-20); BUN (Urea Nitrogen) 7 mg/dL (7.0-18.7); Calc. Creatinine Clearance 154 mL/min (70-130); Calcium 7.8 mg/dL (7.8-10.44); Carbon Dioxide 30 mmol/L (22-29); Chloride 104 mmol/L (98-107); Glucose 88 mg/dL (70-105); Magnesium 1.6 mg/dL (1.6-2.6); Phosphorus 3.6 mg/dL (2.3-4.7); Potassium 3.6 mmol/L (3.5-5.1); Sodium 140 mmol/L (136-145)
--- NOTE | 2020-04-12 08:37 | RAD ---
Chest one view HISTORY: Pneumothorax. Follow-up. COMPARISON: 04/11/2020. FINDINGS: Cardiac silhouette and pulmonary vasculature are unremarkable. Mediastinum midline with lef t subclavian central venous catheter in place. [place] of the left visceral pleura overlies the superior margin of the posterior aspect left third rib. Unchanged. Right lung is well-inflated. IMPRESSION : Small left apical pneumothorax, stable.
[2020-04-12] MEDS: Hydrocortisone Sod Succ/PF 100 mg/2 ml Vial IVP SCH ×2 (08:39→21:11)
[2020-04-12] MEDS: Ferrous Sulfate 325 MG TAB PO SCH ×2 (08:40→16:58)
[2020-04-12] MEDS: Polyethylene Glycol 3350 17 GM Packet PO SCH (08:40)
[2020-04-12] MEDS: Ascorbic Acid 500 mg Chewable Tablet PO SCH ×2 (08:40→21:11)
[2020-04-12] MEDS: Famotidine/PF 20 mg/2ml Vial SLOW IVP SCH ×2 (08:40→21:11)
[2020-04-12] MEDS: Senokot S 8.6-50 MG TAB PO SCH ×2 (08:40→21:11)
[2020-04-12] MEDS ORDERED: Magnesium Sulfate 3 GM in Sodium Chloride 0.9% 100 ML IVPB SCH (09:00)
[2020-04-12] MEDS ORDERED: Potassium Phosphate 30 MMOL, Magnesium Sulfate 3 GM in Sodium Chloride 0.9% 250 ML IVPB SCH (09:00)
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
[2020-04-13] MEDS: Sodium Chloride 0.9% 1,000 ML IV SCH ×2 (00:19→12:08)
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
[2020-04-13] MEDS: Clindamycin/D5W 600 MG in Premix Bag 1 BAG IVPB SCH ×4 (02:06→20:47)
[2020-04-13 06:23] LABS: #Eosinphils 0.2 thou/uL (0.0-0.7); #Lymphocytes 2.4 thou/uL (1.20-3.40); #Monocytes 1.1 thou/uL (0.11-0.59); #Neutrophils 5.5 thou/uL (1.40-6.50); %Basophils 0.5 % (0.0-1.0); %Eosinophils 2.3 % (0.0-10.0); %Lymphocytes 26.2 % (21.0-51.0); %Monocytes 11.4 % (0.0-10.0); %Neutrophils 59.6 % (42.0-75.0); Hemoglobin 9.4 g/dL (12.0-16.0); Mean Corpuscular HGB CONC 30.9 g/dL (32.0-36.0); Mean Corpuscular Hemoglobin 29.3 pg (27.0-31.0); Mean Corpuscular Volume 94.8 fL (78.0-98.0); Platelet Count 287 thou/uL (130-400); RBC Distribution Width 15.8 % (11.5-14.5); White Blood Cell (WBC) Count 9.3 thou/uL (4.8-10.8)
[2020-04-13 06:43] LABS: Anion Gap 13 mmol/L (10-20); BUN (Urea Nitrogen) 9 mg/dL (7.0-18.7); Calc. Creatinine Clearance 142 mL/min (70-130); Calcium 7.9 mg/dL (7.8-10.44); Carbon Dioxide 28 mmol/L (22-29); Chloride 102 mmol/L (98-107); Glucose 95 mg/dL (70-105); Magnesium 1.9 mg/dL (1.6-2.6); Phosphorus 4.5 mg/dL (2.3-4.7); Potassium 4.9 mmol/L (3.5-5.1); Sodium 138 mmol/L (136-145)
[2020-04-13] MEDS: Ferrous Sulfate 325 MG TAB PO SCH ×2 (07:25→18:10)
[2020-04-13] MEDS: Ascorbic Acid 500 mg Chewable Tablet PO SCH ×2 (07:26→20:47)
[2020-04-13] MEDS: Senokot S 8.6-50 MG TAB PO SCH ×2 (07:26→20:46)
[2020-04-13] MEDS: Polyethylene Glycol 3350 17 GM Packet PO SCH (07:26)
[2020-04-13] MEDS: Famotidine/PF 20 mg/2ml Vial SLOW IVP SCH ×2 (07:33→20:46)
[2020-04-13] MEDS: Hydrocortisone Sod Succ/PF 100 mg/2 ml Vial IVP SCH ×2 (07:33→20:46)
[2020-04-13] MEDS ORDERED: Ondansetron PF 4 MG/2 ML Vial ONE (10:34)
[2020-04-13] MEDS ORDERED: PHENYLEPHRINE-NS 100 MCG/ML 10 ML SYRINGE ONE (10:34)
[2020-04-13] MEDS ORDERED: PROPOFOL 200 MG/20 ML VIAL ONE (10:34)
[2020-04-13] MEDS ORDERED: Dexamethasone 20 MG/5 ML VIAL ONE (10:34)
[2020-04-13] MEDS ORDERED: Lidocaine 1% PF 5 ML VIAL ONE (10:34)
[2020-04-13] MEDS ORDERED: Ondansetron HCl/PF 4 MG/2 ML Vial IVP PRN ×2 (12:45→14:58)
[2020-04-13] MEDS ORDERED: Promethazine HCl 25 MG/ML VIAL IM PRN ×2 (12:45→14:58)
[2020-04-13] MEDS ORDERED: Meperidine HCl/PF 25 MG/ML VIAL SLOW IVP PRN ×2 (12:45→14:58)
[2020-04-13] MEDS ORDERED: Promethazine HCl 25 MG/ML VIAL SLOW IVP PRN ×2 (12:45→14:58)
[2020-04-13] MEDS ORDERED: Fentanyl 100 MCG/2 ML VIAL ONE ×3 (13:28→14:57)
[2020-04-13] MEDS ORDERED: PACU-Morphine 4MG/ML VIAL SLOW IVP PRN (14:58)
[2020-04-13] MEDS ORDERED: Morphine Sulfate 2 MG/ML SYRINGE SLOW IVP PRN (14:58)
[2020-04-13] MEDS ORDERED: HYDROmorphone 2 MG/ML VIAL SLOW IVP PRN (14:58)
[2020-04-13] MEDS ORDERED: Clindamycin/D5W 600 mg/50 ml Premix Bag ONE (15:18)
--- NOTE | 2020-04-13 15:30 | RAD ---
LEFT FEMUR 2 VIEWS: HISTORY: Intraoperative films. FINDINGS: These are a total of 4 C-arm views which show comminuted femur fracture. An externa fixation device is seen in the proximal femoral shaft. IMPRESSION: Comminuted femur fracture. Partial visualization of an external fixation device is seen on the C-arm views. POS: OFF
--- NOTE | 2020-04-13 15:31 | RAD ---
LEFT TIBIA FIBULA: Four fluoroscopic images presented from the OR. INDICATION: Open reduction internal fixation. FINDINGS/IMPRESSION: These images show comminuted displaced fractures of the proximal tibia and fibula as well as the dist al tibia and fibula. POS: AGW
--- NOTE | 2020-04-13 15:41 | PRG ---
DATE OF SERVICE: 04/13/2020 SUBJECTIVE: The patient was seen during morning rounds with Dr. Palma. The patient is awake, alert, in no distress. The patient had no overnight events. The patient does report difficulty falling back asleep when staff comes in to check her vital signs in the middle of the night. Otherwise, her pain is well controlled with her CATTLE RANCHER pump. The patient denies any chest pain or shortness of breath. The patient has been n.p.o. since midnight as Orthopedic Surgery plans to take her to the OR for washout again of this left lower extremity open fracture. OBJECTIVE: VITAL SIGNS: Temperature 98.2, pulse 102, respirations 16, SpO2 of 99% on room air, blood pressure 115/63. GENERAL: Well-appearing middle-aged female, awake, alert, in no distress. HEENT: Unremarkable. RESPIRATORY: Good inspiratory and expiratory effort. Respirations even and nonlabored. CARDIAC: Regular rate, mildly tachycardic. ABDOMEN: Soft, nontender, nondistended. EXTREMITIES: Left lower extremity in an external fixator. Left upper extremity splinted. NEUROLOGIC: No focal deficits. PLAN: Continue supportive care and pain regimen. Continue maintenance fluids 100 mL an hour as she has been n.p.o. Can do q.shift vital signs. We will place the patient on Lovenox for VTE prophylaxis daily starting tonight. Continue PT/OT. Again, the patient was examined by Dr. Palma. Job ID: [id number]
[2020-04-13] MEDS: HYDROmorphone 10 mg/100 ml CADD IVPB PRN (15:45)
[2020-04-13] MEDS: diphenhydrAMINE 25 MG CAP PO PRN (20:45)
[2020-04-13] MEDS ORDERED: Enoxaparin Sodium 40 MG/0.4 ML SYRINGE SC SCH (21:00)
[2020-04-14] MEDS: Sodium Chloride 0.9% 1,000 ML IV SCH (02:35)
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
[2020-04-14] MEDS: Clindamycin/D5W 600 MG in Premix Bag 1 BAG IVPB SCH ×4 (03:02→21:20)
[2020-04-14 05:41] LABS: #Eosinphils 0.1 thou/uL (0.0-0.7); #Monocytes 1.3 thou/uL (0.11-0.59); %Basophils 0.2 % (0.0-1.0); %Eosinophils 0.8 % (0.0-10.0); %Lymphocytes 17.6 % (21.0-51.0); %Monocytes 11.4 % (0.0-10.0); Hemoglobin 9.3 g/dL (12.0-16.0); Mean Corpuscular HGB CONC 31.3 g/dL (32.0-36.0); Mean Corpuscular Hemoglobin 29.7 pg (27.0-31.0); Mean Corpuscular Volume 94.8 fL (78.0-98.0); Mean Platelet Volume 7.6 fL (7.4-10.4); Platelet Count 320 thou/uL (130-400); RBC Distribution Width 15.9 % (11.5-14.5); Red Blood Cell (RBC) Count 3.13 mill/uL (4.20-5.40); White Blood Cell (WBC) Count 11.5 thou/uL (4.8-10.8)
[2020-04-14 06:07] LABS: Anion Gap 11 mmol/L (10-20); BUN (Urea Nitrogen) 10 mg/dL (7.0-18.7); CK (CPK) 818 U/L (29-168); Calc. Creatinine Clearance 139 mL/min (70-130); Calcium 8.3 mg/dL (7.8-10.44); Carbon Dioxide 31 mmol/L (22-29); Chloride 101 mmol/L (98-107); Glucose 112 mg/dL (70-105); Magnesium 1.7 mg/dL (1.6-2.6); Sodium 139 mmol/L (136-145)
[2020-04-14 06:59] LABS: Phosphorus 3.4 mg/dL (2.3-4.7)
[2020-04-14] MEDS: Senokot S 8.6-50 MG TAB PO SCH ×2 (08:56→21:19)
[2020-04-14] MEDS: Ascorbic Acid 500 mg Chewable Tablet PO SCH ×2 (08:57→21:19)
[2020-04-14] MEDS: Ferrous Sulfate 325 MG TAB PO SCH ×3 (08:57→21:19)
[2020-04-14] MEDS: Saccharomyces boulardii 250 MG CAP PO SCH ×2 (08:58→21:20)
[2020-04-14] MEDS: Polyethylene Glycol 3350 17 GM Packet PO SCH (08:58)
--- NOTE | 2020-04-14 14:20 | CT ---
EXAM: CT left knee PROVIDED CLINICAL HISTORY: Preoperative planning COMPARISON: Prior radiographs FINDINGS: There is a comminuted segmental fracture of the distal femoral diaphysis, the proximal extent of whic h is not included on these images. There are multiple small bone fragments demonstrated within the soft tissues about the distal femur. There is circumscribed fluid density demonstrated at the anterio r aspect of the major distal femoral diaphyseal fragment demonstrating several foci of internal gas. This is adjacent to an area of cutaneous irregularity that presumably reflects postoperative sit e. There is an extensively comminuted, displaced fracture involving the distal femoral metaphysis with e xtension to involve the intercondylar region of the knee in multiple locations. There is fracture extension to involve the posterior aspect of the lateral femoral condyle with minimal intra-articular step-off. There is an extensively comminuted and displaced fracture of the fibular head and neck. There is an extensively comminuted and displaced fracture involving the proximal tibial metaphyseal r egion with extension to involve the medial and lateral tibial plateaus. There is approximately 3 mm of intra-articular step-off maximally involving the anterior aspect of the lateral tibial plateau ext ension. There is no significant intra-articular step-off or gap involving the medial tibial plateau extension. Several of the bony fragments at the posterior aspect of the distal femoral metaphyseal re gion approximate the popliteal vasculature. There are multiple foci of soft tissue gas about the anterior aspect of the proximal foreleg. There i s a poorly defined appearance to the quadriceps tendon approximately 3.5 cm proximal to the patellar insertion, which may reflect disruption. IMPRESSION: 1. Extensive comminuted fractures of the distal femur, proximal tibia and proximal fibula as describe d. 2. Soft tissue gas and fluid density as described above, presumably postoperative. Correlate with con cerns for infection.
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
[2020-04-14] MEDS ORDERED: Enoxaparin Sodium 30 MG/0.3 ML SYRINGE SC SCH (21:00)
[2020-04-14] MEDS: diphenhydrAMINE 25 MG CAP PO PRN (21:25)
[2020-04-14] MEDS: HYDROmorphone 10 mg/100 ml CADD IVPB PRN (21:29)
[2020-04-15] MEDS: Clindamycin/D5W 600 MG in Premix Bag 1 BAG IVPB SCH ×4 (02:25→21:46)
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
[2020-04-15 06:24] LABS: Hemoglobin 9.3 g/dL (12.0-16.0); Mean Corpuscular HGB CONC 32.2 g/dL (32.0-36.0); Mean Corpuscular Hemoglobin 30.8 pg (27.0-31.0); Mean Corpuscular Volume 95.6 fL (78.0-98.0); Mean Platelet Volume 7.7 fL (7.4-10.4); Platelet Count 359 thou/uL (130-400); White Blood Cell (WBC) Count 12.8 thou/uL (4.8-10.8)
[2020-04-15 06:49] LABS: ALT (SGPT) 50 U/L (8-55); AST (SGOT) 29 U/L (5-34); Albumin 2.7 g/dL (3.5-5.0); Alkaline Phosphatase 72 U/L (40-110); Anion Gap 11 mmol/L (10-20); BUN (Urea Nitrogen) 10 mg/dL (7.0-18.7); Calc. Creatinine Clearance 137 mL/min (70-130); Carbon Dioxide 29 mmol/L (22-29); Chloride 101 mmol/L (98-107); Globulin 2.4 g/dL (2.4-3.5); Glucose 96 mg/dL (70-105); Magnesium 1.6 mg/dL (1.6-2.6); Phosphorus 4.3 mg/dL (2.3-4.7); Protein, Total 5.1 g/dL (6.0-8.3); Sodium 137 mmol/L (136-145)
[2020-04-15 09:30] LABS: Lactic Acid 2.4 mmol/L (0.5-2.2)
[2020-04-15] MEDS: Polyethylene Glycol 3350 17 GM Packet PO SCH (09:43)
[2020-04-15] MEDS: Enoxaparin Sodium 30 MG/0.3 ML SYRINGE SC SCH ×2 (09:43→21:54)
[2020-04-15] MEDS: Senokot S 8.6-50 MG TAB PO SCH ×2 (09:44→21:44)
[2020-04-15] MEDS: Saccharomyces boulardii 250 MG CAP PO SCH ×2 (09:44→21:55)
[2020-04-15] MEDS: Ferrous Sulfate 325 MG TAB PO SCH ×2 (09:44→21:45)
[2020-04-15] MEDS: Ascorbic Acid 500 mg Chewable Tablet PO SCH ×2 (09:44→21:45)
[2020-04-15 10:17] VITALS: BMI 19.5
[2020-04-15] MEDS ORDERED: traMADol HCl 50 MG TAB PO PRN (12:49)
[2020-04-15] MEDS: Acetaminophen 325 MG TAB PO SCH ×2 (15:00→21:44)
[2020-04-15] MEDS: Ibuprofen 600 MG TAB PO SCH ×2 (15:01→21:45)
[2020-04-15] MEDS: traMADol HCl 50 MG TAB PO SCH ×2 (18:22→23:42)
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
[2020-04-16] MEDS: Acetaminophen 325 MG TAB PO SCH ×4 (02:30→21:39)
[2020-04-16] MEDS: Clindamycin/D5W 600 MG in Premix Bag 1 BAG IVPB SCH ×4 (03:42→21:41)
[2020-04-16 05:42] LABS: #Basophils 0.1 thou/uL (0.0-0.2); #Eosinphils 0.5 thou/uL (0.0-0.7); #Lymphocytes 1.7 thou/uL (1.20-3.40); #Neutrophils 9.8 thou/uL (1.40-6.50); %Basophils 0.5 % (0.0-1.0); %Eosinophils 3.9 % (0.0-10.0); %Lymphocytes 12.8 % (21.0-51.0); %Monocytes 7.5 % (0.0-10.0); %Neutrophils 75.4 % (42.0-75.0); Hemoglobin 9.6 g/dL (12.0-16.0); Mean Corpuscular HGB CONC 32.7 g/dL (32.0-36.0); Mean Corpuscular Volume 94.8 fL (78.0-98.0); Mean Platelet Volume 7.7 fL (7.4-10.4); Platelet Count 383 thou/uL (130-400); White Blood Cell (WBC) Count 12.9 thou/uL (4.8-10.8)
[2020-04-16 06:14] LABS: Anion Gap 12 mmol/L (10-20); BUN (Urea Nitrogen) 14 mg/dL (7.0-18.7); Calc. Creatinine Clearance 137 mL/min (70-130); Calcium 8.3 mg/dL (7.8-10.44); Carbon Dioxide 28 mmol/L (22-29); Chloride 100 mmol/L (98-107); Glucose 97 mg/dL (70-105); Magnesium 1.8 mg/dL (1.6-2.6); Potassium 3.9 mmol/L (3.5-5.1); Sodium 136 mmol/L (136-145)
[2020-04-16] MEDS: traMADol HCl 50 MG TAB PO SCH ×4 (06:23→23:48)
[2020-04-16] MEDS: Ibuprofen 600 MG TAB PO SCH ×3 (06:24→21:40)
[2020-04-16] MEDS: Ascorbic Acid 500 mg Chewable Tablet PO SCH ×2 (09:48→21:41)
[2020-04-16] MEDS: Saccharomyces boulardii 250 MG CAP PO SCH ×2 (09:49→21:41)
[2020-04-16] MEDS: Senokot S 8.6-50 MG TAB PO SCH ×2 (09:49→21:41)
[2020-04-16] MEDS: Polyethylene Glycol 3350 17 GM Packet PO SCH (09:49)
[2020-04-16] MEDS: Enoxaparin Sodium 30 MG/0.3 ML SYRINGE SC SCH ×2 (09:49→21:41)
[2020-04-16] MEDS: Ferrous Sulfate 325 MG TAB PO SCH ×2 (09:49→21:40)
[2020-04-17] MEDS: Acetaminophen 325 MG TAB PO SCH ×4 (02:26→21:09)
[2020-04-17] MEDS: Clindamycin/D5W 600 MG in Premix Bag 1 BAG IVPB SCH ×4 (02:29→21:10)
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
[2020-04-17] MEDS: Ibuprofen 600 MG TAB PO SCH ×3 (06:02→21:12)
[2020-04-17] MEDS: traMADol HCl 50 MG TAB PO SCH ×4 (06:02→23:55)
[2020-04-17] MEDS ORDERED: Fentanyl 100 MCG/2 ML VIAL ONE ×5 (06:27→10:57)
[2020-04-17] MEDS ORDERED: Clindamycin/D5W 900 MG in Premix Bag 1 BAG IVPB SCH (07:30)
[2020-04-17] MEDS ORDERED: Clindamycin/D5W 600 mg/50 ml Premix Bag ONE (08:14)
[2020-04-17] MEDS: Senokot S 8.6-50 MG TAB PO SCH ×2 (09:00→21:10)
[2020-04-17] MEDS: Polyethylene Glycol 3350 17 GM Packet PO SCH (09:00)
[2020-04-17] MEDS: Ferrous Sulfate 325 MG TAB PO SCH ×2 (09:00→21:09)
[2020-04-17] MEDS: Enoxaparin Sodium 30 MG/0.3 ML SYRINGE SC SCH ×2 (09:00→21:09)
[2020-04-17] MEDS: Ascorbic Acid 500 mg Chewable Tablet PO SCH ×2 (09:00→21:09)
[2020-04-17] MEDS: Saccharomyces boulardii 250 MG CAP PO SCH ×2 (09:00→21:09)
[2020-04-17] MEDS ORDERED: Promethazine HCl 25 MG/ML VIAL ONE (09:17)
[2020-04-17] MEDS ORDERED: Midazolam HCl 2 mg/2 ml Vial ONE (09:55)
[2020-04-17] MEDS ORDERED: ePHEDrine 50 MG/ML VIAL ONE (10:04)
[2020-04-17] MEDS ORDERED: PHENYLEPHRINE-NS 100 MCG/ML 10 ML SYRINGE ONE (10:04)
[2020-04-17] MEDS ORDERED: Dexamethasone 20 MG/5 ML VIAL ONE (10:04)
[2020-04-17] MEDS ORDERED: Lidocaine 1% PF 5 ML VIAL ONE (10:04)
[2020-04-17] MEDS ORDERED: Glycopyrrolate 0.2 MG/ML 5 ML SYRINGE ONE (10:04)
[2020-04-17] MEDS ORDERED: Ondansetron PF 4 MG/2 ML Vial ONE (10:04)
[2020-04-17] MEDS ORDERED: PROPOFOL 200 MG/20 ML VIAL ONE (10:04)
[2020-04-17] MEDS ORDERED: Rocuronium Bromide 10 MG/ML (10ML VIAL) ONE (10:04)
[2020-04-17] MEDS ORDERED: Esmolol 100 MG/10 ML VIAL ONE (10:04)
[2020-04-17] MEDS ORDERED: Promethazine HCl 25 MG/ML VIAL SLOW IVP PRN (10:06)
[2020-04-17] MEDS ORDERED: Promethazine HCl 25 MG/ML VIAL IM PRN (10:06)
[2020-04-17] MEDS ORDERED: Ondansetron HCl/PF 4 MG/2 ML Vial IVP PRN (10:06)
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
[2020-04-17 11:42] LABS: #Lymphocytes 0.7 thou/uL (1.20-3.40); #Monocytes 0.2 thou/uL (0.11-0.59); #Neutrophils 14.7 thou/uL (1.40-6.50); %Basophils 0.2 % (0.0-1.0); %Eosinophils 0.3 % (0.0-10.0); %Lymphocytes 4.2 % (21.0-51.0); %Monocytes 1.5 % (0.0-10.0); %Neutrophils 93.8 % (42.0-75.0); Hemoglobin 8.7 g/dL (12.0-16.0); Mean Corpuscular HGB CONC 30.9 g/dL (32.0-36.0); Mean Corpuscular Hemoglobin 30.1 pg (27.0-31.0); Mean Corpuscular Volume 97.2 fL (78.0-98.0); Mean Platelet Volume 7.5 fL (7.4-10.4); Platelet Count 401 thou/uL (130-400); RBC Distribution Width 16.3 % (11.5-14.5); Red Blood Cell (RBC) Count 2.88 mill/uL (4.20-5.40); White Blood Cell (WBC) Count 15.6 thou/uL (4.8-10.8)
--- NOTE | 2020-04-17 12:01 | RAD ---
Exam:Intraoperative fluoroscopy HISTORY: Left femur ORIF COMPARISON: None FINDINGS: 3 intraoperative fluoroscopic views demonstrate extensive internal fixation screws at the l evel of distal femur. Comminution and fracture lucencies are identified. Exposure: 16.4 seconds, 0.72 mGy IMPRESSION: Intraoperative fluoroscopy as above
[2020-04-17 12:16] LABS: Anion Gap 13 mmol/L (10-20); BUN (Urea Nitrogen) 11 mg/dL (7.0-18.7); Calc. Creatinine Clearance 132 mL/min (70-130); Calcium 8.1 mg/dL (7.8-10.44); Carbon Dioxide 25 mmol/L (22-29); Chloride 103 mmol/L (98-107); Glucose 109 mg/dL (70-105); Magnesium 1.7 mg/dL (1.6-2.6); Potassium 4.5 mmol/L (3.5-5.1); Sodium 136 mmol/L (136-145)
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
[2020-04-18] MEDS: Acetaminophen 325 MG TAB PO SCH ×4 (02:20→20:28)
[2020-04-18] MEDS: Clindamycin/D5W 600 MG in Premix Bag 1 BAG IVPB SCH ×2 (03:50→09:30)
[2020-04-18] MEDS: Ibuprofen 600 MG TAB PO SCH ×3 (05:40→22:25)
[2020-04-18] MEDS: traMADol HCl 50 MG TAB PO SCH ×4 (05:40→23:35)
[2020-04-18 09:18] LABS: #Eosinphils 0.3 thou/uL (0.0-0.7); #Lymphocytes 2.2 thou/uL (1.20-3.40); #Monocytes 1.1 thou/uL (0.11-0.59); #Neutrophils 8.7 thou/uL (1.40-6.50); %Basophils 0.3 % (0.0-1.0); %Eosinophils 2.2 % (0.0-10.0); %Lymphocytes 17.7 % (21.0-51.0); %Monocytes 8.9 % (0.0-10.0); %Neutrophils 70.9 % (42.0-75.0); Hemoglobin 7.2 g/dL (12.0-16.0); Mean Corpuscular HGB CONC 32.4 g/dL (32.0-36.0); Mean Corpuscular Hemoglobin 31.5 pg (27.0-31.0); Mean Corpuscular Volume 97.2 fL (78.0-98.0); Mean Platelet Volume 7.5 fL (7.4-10.4); Platelet Count 387 thou/uL (130-400); RBC Distribution Width 16.3 % (11.5-14.5); Red Blood Cell (RBC) Count 2.28 mill/uL (4.20-5.40); White Blood Cell (WBC) Count 12.3 thou/uL (4.8-10.8)
[2020-04-18] MEDS: Ascorbic Acid 500 mg Chewable Tablet PO SCH ×2 (09:29→20:27)
[2020-04-18] MEDS: Polyethylene Glycol 3350 17 GM Packet PO SCH (09:30)
[2020-04-18] MEDS: Enoxaparin Sodium 30 MG/0.3 ML SYRINGE SC SCH ×2 (09:30→20:27)
[2020-04-18] MEDS: Senokot S 8.6-50 MG TAB PO SCH ×2 (09:31→20:28)
[2020-04-18] MEDS: Saccharomyces boulardii 250 MG CAP PO SCH ×2 (09:31→20:27)
[2020-04-18] MEDS: Ferrous Sulfate 325 MG TAB PO SCH ×2 (12:32→20:27)
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
[2020-04-19] MEDS: Acetaminophen 325 MG TAB PO SCH ×4 (02:03→20:49)
[2020-04-19] MEDS: Ibuprofen 600 MG TAB PO SCH ×3 (05:02→22:11)
[2020-04-19] MEDS: traMADol HCl 50 MG TAB PO SCH ×4 (05:03→23:47)
[2020-04-19 05:28] LABS: #Basophils 0.1 thou/uL (0.0-0.2); #Eosinphils 0.4 thou/uL (0.0-0.7); #Monocytes 1.2 thou/uL (0.11-0.59); #Neutrophils 8.1 thou/uL (1.40-6.50); %Basophils 0.9 % (0.0-1.0); %Eosinophils 3.4 % (0.0-10.0); %Lymphocytes 17.1 % (21.0-51.0); %Neutrophils 68.5 % (42.0-75.0); Mean Corpuscular HGB CONC 31.7 g/dL (32.0-36.0); Mean Corpuscular Hemoglobin 30.9 pg (27.0-31.0); Mean Corpuscular Volume 97.3 fL (78.0-98.0); Mean Platelet Volume 7.6 fL (7.4-10.4); Platelet Count 403 thou/uL (130-400); RBC Distribution Width 16.1 % (11.5-14.5); Red Blood Cell (RBC) Count 2.27 mill/uL (4.20-5.40); White Blood Cell (WBC) Count 11.8 thou/uL (4.8-10.8)
[2020-04-19] MEDS: Ascorbic Acid 500 mg Chewable Tablet PO SCH ×2 (08:43→20:49)
[2020-04-19] MEDS: Enoxaparin Sodium 30 MG/0.3 ML SYRINGE SC SCH (08:43)
[2020-04-19] MEDS: Ferrous Sulfate 325 MG TAB PO SCH ×2 (08:43→20:49)
[2020-04-19] MEDS: Saccharomyces boulardii 250 MG CAP PO SCH ×2 (08:43→20:49)
[2020-04-19] MEDS: Senokot S 8.6-50 MG TAB PO SCH ×2 (08:43→20:50)
[2020-04-19] MEDS: Polyethylene Glycol 3350 17 GM Packet PO SCH (08:44)
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
[2020-04-19] MEDS: Cyclobenzaprine 10 MG TAB PO PRN (17:58)
[2020-04-20] MEDS: Acetaminophen 325 MG TAB PO SCH ×4 (02:13→20:47)
[2020-04-20] MEDS: traMADol HCl 50 MG TAB PO SCH ×3 (06:05→18:05)
[2020-04-20] MEDS: Ibuprofen 600 MG TAB PO SCH ×3 (06:05→20:48)
[2020-04-20 08:21] LABS: #Eosinphils 0.3 thou/uL (0.0-0.7); #Lymphocytes 1.6 thou/uL (1.20-3.40); #Neutrophils 10.8 thou/uL (1.40-6.50); %Basophils 0.3 % (0.0-1.0); %Eosinophils 2.2 % (0.0-10.0); %Lymphocytes 11.7 % (21.0-51.0); %Monocytes 7.2 % (0.0-10.0); %Neutrophils 78.5 % (42.0-75.0); Hemoglobin 8.5 g/dL (12.0-16.0); Mean Corpuscular HGB CONC 31.8 g/dL (32.0-36.0); Mean Corpuscular Hemoglobin 30.8 pg (27.0-31.0); Mean Corpuscular Volume 96.9 fL (78.0-98.0); Mean Platelet Volume 7.5 fL (7.4-10.4); Platelet Count 397 thou/uL (130-400); RBC Distribution Width 16.3 % (11.5-14.5); Red Blood Cell (RBC) Count 2.76 mill/uL (4.20-5.40); White Blood Cell (WBC) Count 13.7 thou/uL (4.8-10.8)
[2020-04-20 08:39] LABS: Anion Gap 12 mmol/L (10-20); BUN (Urea Nitrogen) 9 mg/dL (7.0-18.7); Calc. Creatinine Clearance 139 mL/min (70-130); Calcium 8.2 mg/dL (7.8-10.44); Carbon Dioxide 27 mmol/L (22-29); Chloride 105 mmol/L (98-107); Glucose 89 mg/dL (70-105); Magnesium 1.7 mg/dL (1.6-2.6); Phosphorus 4.2 mg/dL (2.3-4.7); Potassium 4.1 mmol/L (3.5-5.1); Sodium 140 mmol/L (136-145)
[2020-04-20] MEDS: Polyethylene Glycol 3350 17 GM Packet PO SCH (08:40)
[2020-04-20] MEDS: Ascorbic Acid 500 mg Chewable Tablet PO SCH ×2 (08:42→20:48)
[2020-04-20] MEDS: Senokot S 8.6-50 MG TAB PO SCH ×2 (10:40→20:48)
[2020-04-20] MEDS ORDERED: traMADol HCl 50 MG TAB ONE (12:36)
[2020-04-20] MEDS: Ferrous Sulfate 325 MG TAB PO SCH ×2 (12:39→20:48)
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
--- NOTE | 2020-04-20 14:29 | PRG ---
DATE OF SERVICE: 04/20/2020 SUBJECTIVE: Lucila is a 29-year-old female who is postop day #2 for open reduction and internal fixation of the left distal femur with ex fix treatment and a planned limb salvage. She is doing relatively well. She has been doing very well, and I believe, she will have her IVC filter removed today. OBJECTIVE: VITAL SIGNS: Temperature 98.3, pulse 95, respiratory rate 16, and blood pressure is 111/68. GENERAL: She is alert and oriented to person, place, time, situation, responsive, appropriate with examiner. MUSCULOSKELETAL: Her incision on the elbow is clean after removal of the splint. It was replaced with a posterior splint and gifty were removed and stitches were removed from her hand on the same side. IMPRESSION: 29-year-old female, status post open reduction and internal fixation of the left olecranon. PLAN: 1. Discontinue gifty. Also, stitches removed over the MCP joints, and she was placed in a posterior splint and rewrapped to 90 degrees. 2. We will arrange transfer for further efforts of limb salvage. Job ID: [id number]
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
[2020-04-20] MEDS: Cyclobenzaprine 10 MG TAB PO PRN (18:05)
[2020-04-20] MEDS: Apixaban 5 MG TAB PO SCH (20:48)
[2020-04-21] MEDS: Acetaminophen 325 MG TAB PO SCH ×2 (00:46→08:36)
[2020-04-21] MEDS: traMADol HCl 50 MG TAB PO SCH ×3 (00:47→11:53)
[2020-04-21] MEDS: Ibuprofen 600 MG TAB PO SCH (05:30)
[2020-04-21 08:30] VITALS: BP 97/60; TEMP 98.4
[2020-04-21] MEDS ORDERED: Ibuprofen 600 MG TAB PO PRN (08:30)
[2020-04-21] MEDS: Polyethylene Glycol 3350 17 GM Packet PO SCH (08:33)
[2020-04-21] MEDS: Senokot S 8.6-50 MG TAB PO SCH (08:33)
[2020-04-21] MEDS: Apixaban 5 MG TAB PO SCH (08:36)
[2020-04-21] MEDS: Ascorbic Acid 500 mg Chewable Tablet PO SCH (08:36)
[2020-04-21] MEDS: Ferrous Sulfate 325 MG TAB PO SCH (08:36)
[2020-04-21] MEDS: Cyclobenzaprine 10 MG TAB PO PRN (11:53)
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
--- NOTE | 2020-04-23 17:10 | PQF ---
CLINICAL DOCUMENTATION CLARIFICATION FORM: Dear : Mariano Giordano MD Date / Time: 04/23/2020 1610 Please exercise your independent, professional judgment in responding to the clarification form. Clinical indicators are provided on the bottom of this form for your review Please check appropriate box(es): Debridement of left femur on 04/05: [ x] Excisional Debridement: [ ] Non-excisional Debridement: (Removal by brushing, chemical, or washing) Debridement of left upper leg muscle on 04/07: [ x ] Excisional Debridement: [ ] Non-excisional Debridement: (Removal by brushing, chemical, or washing) Debridement of left upper leg muscle on 04/07: [x ] Excisional Debridement: [ ] Non-excisional Debridement: (Removal by brushing, chemical, or washing) [ ] Other procedure diagnosis [ ] Unable to determine Physician Signature: Date/Time: For continuity of documentation, please document condition throughout progress notes and discharge summary. Thank You. To be completed by CDI/Coding staff for physician review: Present Clinical Indicators - Signs / Symptoms / Labs Results and Location in Medical Record [ x ] There were many parts of the femur which were completely devitalized and had to be debrided. Operative report 04/05 (Dr. Giordano) [ x ] There were some small sang of muscle that looked nonviable, which were debrided Operative report 04/07 (Dr. Giordano) [ x ] The patients degloved skin on the lower leg was opened and we debrided underlying muscle Operative report 04/07 (Dr. Giordano) Present Risk Factors Results and Location in Medical Record [ x ] Mangled left extremity with open fractures as above as well as other injuries Operative report 04/05 (Dr. Giordano) Present Treatments Results and Location in Medical Record [ x ] Irrigation and debridement of left open femur fracture Operative report 04/05 (Dr. Giordano) [ x ] Irrigation and debridement of left open femur fracture and debridement of left open tibia fracture Operative report 04/07 (Dr. Giordano) CDS/Public Address System Installer Signature: Suzy Dowell Date/Time: 04/23/2020 1610 This is a permanent part of the Medical Record [facility]
== END 2020-04-21 13:49 | disposition home or self-care (01) | DRG 956 ==
LOC: ERS 18:46 → CCU 21:54 → UNDOADMIN 21:54 → SURG A 04-08 14:08
PROVIDERS: ADMIT Surgery; ATTEND Surgery
PROC: 3E0234Z Introduction of Serum, Toxoid and Vaccine into Muscle, Percutaneous Approach (ICD-10-PCS; principal; 2020-04-05)
PROC: 3E033XZ Introduction of Vasopressor into Peripheral Vein, Percutaneous Approach (ICD-10-PCS; 2020-04-05)
PROC: 30233L1 Transfusion of Nonautologous Fresh Plasma into Peripheral Vein, Percutaneous Approach (ICD-10-PCS; 2020-04-05)
PROC: 30233N1 Transfusion of Nonautologous Red Blood Cells into Peripheral Vein, Percutaneous Approach (ICD-10-PCS; 2020-04-05)
PROC: 30233R1 Transfusion of Nonautologous Platelets into Peripheral Vein, Percutaneous Approach (ICD-10-PCS; 2020-04-05)
PROC: 30233M1 Transfusion of Nonautologous Plasma Cryoprecipitate into Peripheral Vein, Percutaneous Approach (ICD-10-PCS; 2020-04-05)
PROC: 30233K1 Transfusion of Nonautologous Frozen Plasma into Peripheral Vein, Percutaneous Approach (ICD-10-PCS; 2020-04-05)
PROC: 0QS Lower Bones, Reposition (ICD-10-PCS; 2020-04-05)
PROC: 0QSH05Z Reposition Left Tibia with External Fixation Device, Open Approach (ICD-10-PCS; 2020-04-05)
PROC: 0KBT0ZZ Excision of Left Lower Leg Muscle, Open Approach (ICD-10-PCS; 2020-04-05)
PROC: 06LY0ZZ Occlusion of Lower Vein, Open Approach (ICD-10-PCS; 2020-04-05)
PROC: 02HV33Z Insertion of Infusion Device into Superior Vena Cava, Percutaneous Approach (ICD-10-PCS; 2020-04-05)
PROC: 0W9B30Z Drainage of Left Pleural Cavity with Drainage Device, Percutaneous Approach (ICD-10-PCS; 2020-04-05)
PROC: 0BH17EZ Insertion of Endotracheal Airway into Trachea, Via Natural or Artificial Opening (ICD-10-PCS; 2020-04-05)
PROC: 5A1945Z Respiratory Ventilation, 24-96 Consecutive Hours (ICD-10-PCS; 2020-04-05)
PROC: 06H03DZ Insertion of Intraluminal Device into Inferior Vena Cava, Percutaneous Approach (ICD-10-PCS; 2020-04-06)
PROC: 0PSL04Z Reposition Left Ulna with Internal Fixation Device, Open Approach (ICD-10-PCS; 2020-04-07)
PROC: 0KBT0ZZ Excision of Left Lower Leg Muscle, Open Approach (ICD-10-PCS; 2020-04-07)
PROC: 0KBR0ZZ Excision of Left Upper Leg Muscle, Open Approach (ICD-10-PCS; 2020-04-07)
PROC: 0JBP0ZZ Excision of Left Lower Leg Subcutaneous Tissue and Fascia, Open Approach (ICD-10-PCS; 2020-04-13)
PROC: 0QSC04Z Reposition Left Lower Femur with Internal Fixation Device, Open Approach (ICD-10-PCS; 2020-04-17)
PROC: 06PY3DZ Removal of Intraluminal Device from Lower Vein, Percutaneous Approach (ICD-10-PCS; 2020-04-20)
DX: S72.492A Other fracture of lower end of left femur, initial encounter for closed fracture (principal); S27.332A Laceration of lung, bilateral, initial encounter; J96.00 Acute respiratory failure, unspecified whether with hypoxia or hypercapnia; S82.402B Unspecified fracture of shaft of left fibula, initial encounter for open fracture type I or II; R57.8 Other shock; S82.102A Unspecified fracture of upper end of left tibia, initial encounter for closed fracture; D62 Acute posthemorrhagic anemia; S32.592A Other specified fracture of left pubis, initial encounter for closed fracture; S37.812A Contusion of adrenal gland, initial encounter; E87.2 Acidosis; S32.512A Fracture of superior rim of left pubis, initial encounter for closed fracture; S06.2X9A Diffuse traumatic brain injury with loss of consciousness of unspecified duration, initial encounter; S36.113A Laceration of liver, unspecified degree, initial encounter; E27.40 Unspecified adrenocortical insufficiency; S27.0XXA Traumatic pneumothorax, initial encounter; M62.82 Rhabdomyolysis; N17.9 Acute kidney failure, unspecified; G57.32 Lesion of lateral popliteal nerve, left lower limb; E83.51 Hypocalcemia; Z23 Encounter for immunization; S52.122A Displaced fracture of head of left radius, initial encounter for closed fracture; S52.022A Displaced fracture of olecranon process without intraarticular extension of left ulna, initial encounter for closed fracture; S62.305A Unspecified fracture of fourth metacarpal bone, left hand, initial encounter for closed fracture; S62.307A Unspecified fracture of fifth metacarpal bone, left hand, initial encounter for closed fracture; F15.10 Other stimulant abuse, uncomplicated; F12.10 Cannabis abuse, uncomplicated; I71.4 Abdominal aortic aneurysm, without rupture; E87.6 Hypokalemia; Z88.2 Allergy status to sulfonamides; Z88.1 Allergy status to other antibiotic agents; Z78.1 Physical restraint status; V24.4XXA Motorcycle driver injured in collision with heavy transport vehicle or bus in traffic accident, initial encounter; Z20.822 Contact with and (suspected) exposure to COVID-19
CPT/HCPCS: 0240U; 31500; 36415; 36416; 36430; 37191; 37193; 51702; 70450; 70486; 71045; 71260; 72125; 72170; 74177; 76000; 76377; 76942; 80048; 80053; 80306; 80307; 81003; 81015; 82533; 82550; 82805; 83605; 83735; 84100; 84703; 85025; 85027; 85384; 85610; 85730; 86850; 86900; 86901; 87070; 87205; 90471; 90715; 94002; 94003; 94640; 96365; 96368; 96375; 96376; C1713; J0690; J0696; J1100; J1200; J1580; J1644; J1650; J1720; J1815; J1956; J2001; J2250; J2370; J2405; J2550; J2704; J2765; J3010; J3475; J3480; J3490; J7030; J7050; J7070; J7620; P9012; P9016; P9035; P9045; P9048; P9059; Q0163; Q9967; S0028